=== PATIENT | female | born 1990 | race Caucasian/White ===

== ENCOUNTER 2019-03-11 11:40 | Emergency (ER) | payer OTHER ==
[~2019-03-11] VITALS: Ht 167.6 cm; Wt 90.0 kg
[2019-03-11] MEDS ORDERED: LIDO700A32 TOP (13:57)
[2019-03-11] MEDS ORDERED: IBUP-1986 PO (13:57)
[2019-03-11 14:16] VITALS: BP 129/67
== END 2019-03-12 | disposition home or self-care (01) ==
LOC: ER 03-12 11:40
DX: M54.5 Low back pain (principal)
CPT/HCPCS: 99283